=== PATIENT | female | born 1985 | race Caucasian/White ===

== ENCOUNTER 2016-12-18 10:36 | Inpatient (IN) | payer BC ==
[2016-12-18] MEDS ORDERED: Methylergonovine 0.2 MG/1 ML Amp IM PRN (11:32)
[2016-12-18] MEDS ORDERED: Sodium Chloride 0.9% 10 ML Syringe FLUSH PRN (11:32)
[2016-12-18] MEDS ORDERED: Sodium Chloride 0.9% 2.5 ML Syringe FLUSH PRN (11:32)
[2016-12-18] MEDS ORDERED: Water For Irrigation,Sterile 1,000 ML Container IRR PRN (11:32)
[2016-12-18] MEDS ORDERED: Lidocaine 1% 50 ML MDV INJECT PRN (11:32)
[2016-12-18] MEDS ORDERED: Butorphanol 1 MG/ML SDV IVPUSH PRN (11:32)
[2016-12-18] MEDS ORDERED: Carboprost Tromethamine 250 MCG/1 ML Amp IM PRN (11:32)
[2016-12-18] MEDS ORDERED: Misoprostol 200 MCG Tab PO PRN (11:32)
[2016-12-18] MEDS ORDERED: Nalbuphine 10 MG/1 ML Vial IVPUSH PRN (11:32)
[2016-12-18] MEDS ORDERED: Oxytocin/Lactated Ringers 30 UNIT/500 ML BAG IV SCH (11:45)
[2016-12-18] MEDS: Lactated Ringers 1,000 ML IV SCH ×2 (11:45→14:06)
--- NOTE | 2016-12-18 12:28 | PCM.PREANE ---
Preanesthetic Assessment - Anesthesia/Transfusion/Family Hx Anesthesia History: Prior Anesthesia Without Reaction Other Type of Anesthesia Reaction Comment: grandfather has low platelets - Review of Systems General: No Symptoms Pulmonary: No Symptoms Cardiovascular: No Symptoms Gastrointestinal: No symptoms Neurological: No Symptoms Other: Reports: None - Physical Assessment Height: 5 ft 6.14 in Weight: 79.832 kg ASA Class: 2 Mental Status: Alert & Oriented x3 Airway Class: Mallampati = 2 Dentition: Reports: Normal Dentition Thyro-Mental Finger Breadths: 3 Mouth Opening Finger Breadths: 3 ROM/Head Extension: Full Lungs: Clear to auscultation, Normal respiratory effort Cardiovascular: Regular Rate, Regular Rhythm - Lab Values: Laboratory Last Values WBC 16.17 K/uL (4.0-11.0) H 12/18/16 11:46 RBC 4.31 M/uL (4.30-5.90) 12/18/16 11:46 Hgb 12.3 g/dL (12.0-16.0) 12/18/16 11:46 Hct 37.1 % (36.0-46.0) 12/18/16 11:46 MCV 86.1 fL (80.0-98.0) 12/18/16 11:46 MCH 28.5 pg (27.0-32.0) 12/18/16 11:46 MCHC 33.2 g/dL (31.0-37.0) 12/18/16 11:46 RDW Std Deviation 45.4 fl (28.0-62.0) 12/18/16 11:46 RDW Coeff of Debra 15 % (11.0-15.0) 12/18/16 11:46 Plt Count 257 K/uL (150-400) 12/18/16 11:46 MPV 11.90 fL (7.40-12.00) 12/18/16 11:46 Nucleated RBC % 0.0 /100WBC 12/18/16 11:46 Nucleated RBCs # 0 K/uL 12/18/16 11:46 - Allergies Allergies/Adverse Reactions: Allergies Allergy/AdvReac Type Severity Reaction Status Date / Time No Known Allergies Allergy Verified 08/12/15 14:57 - Acknowledgements Anesthesia Type Planned: Epidural Pt an Appropriate Candidate for the Planned Anesthesia: Yes Alternatives and Risks of Anesthesia Discussed w Pt/Guardian: Yes Pt/Guardian Understands and Agrees with Anesthesia Plan: Yes PreAnesthesia Questionnaire - Past Health History Medical/Surgical History: Denies Medical/Surgical History HEENT History: Reports: None Cardiovascular History: Reports: None Gastrointestinal History: Reports: None Genitourinary History: Reports: None REIN[employer]CEMENT [employer]KER History: Reports: : 2 Para: 1 LMP (Approximate): Musculoskeletal History: Reports: None Neurological History: Reports: None Psychiatric History: Reports: None Endocrine/Metabolic History: Reports: None Hematologic History: Reports: None Immunologic History: Reports: None Oncologic (Cancer) History: Reports: None Dermatologic History: Reports: None - Infectious Disease History Infectious Disease History: Reports: None - SUBSTANCE USE Smoking Status *Q: Never Smoker Tobacco Use Within Last Twelve Months: Cigarettes Second Hand Smoke Exposure: No Recreational Drug Use History: No - CURRENT (IN HOUSE) MEDS Current Meds: Current Medications Butorphanol Tartrate (Stadol) 1 mg IVPUSH Q1H PRN PRN Reason: Pain Last Admin: 12/18/16 11:52 Dose: 1 mg Carboprost Tromethamine (Hemabate Ds) 250 mcg IM ASDIRECTED PRN PRN Reason: Post Hemorrhage Lactated Ringer's (Ringers, Lactated) 1,000 mls @ 150 mls/hr IV ASDIRECTED DEANDRA Oxytocin/Lactated Ringer's (Pitocin In Lr 30 Units/500 Ml) 30 unit in 500 mls @ 500 mls/hr IV TITRATE DEANDRA PRN Reason: 500 MUNITS/MIN Stop: 12/18/16 12:44 Lidocaine HCl (Xylocaine 1%) 50 ml INJECT .ONCE PRN PRN Reason: Laceration repair Methylergonovine Maleate (Methergine) 0.2 mg IM ASDIRECTED PRN PRN Reason: Post Hemorrhage Misoprostol (Cytotec) 200 mcg PO .ONCE PRN PRN Reason: Post Hemorrhage Nalbuphine HCl (Nubain) 10 mg IVPUSH Q1H PRN PRN Reason: Pain (severe 7-10) Stop: 12/18/16 13:33 Sodium Chloride (Saline Flush) 10 ml FLUSH ASDIRECTED PRN PRN Reason: Keep Vein Open Sodium Chloride (Saline Flush) 2.5 ml FLUSH ASDIRECTED PRN PRN Reason: Keep Vein Open Sterile Water (Sterile Water For Irrigation) 1,000 ml IRR ASDIRECTED PRN PRN Reason: delivery
[2016-12-18] MEDS ORDERED: fentaNYL 100 MCG/2 ML SDV ONE (12:41)
[2016-12-18] MEDS ORDERED: Ropivacaine HCl/PF 100 ML ONE (12:41)
[2016-12-18] MEDS ORDERED: Bupivacaine 0.5% 10 ML SDV ONE (13:05)
[2016-12-18] MEDS ORDERED: Bisacodyl 10 MG Supp RECTAL PRN (14:12)
[2016-12-18] MEDS ORDERED: Witch Hazel Medicated Pads 40/Jar TOP PRN (14:12)
[2016-12-18] MEDS ORDERED: oxyCODONE 5 MG Tab PO PRN (14:12)
[2016-12-18] MEDS ORDERED: Lanolin 100% Cream 7 GM Tube TOP PRN (14:12)
[2016-12-18] MEDS ORDERED: Benzocaine/Menthol 20%-0.5% Spray 78 GM Cannister TOP PRN (14:12)
[2016-12-18] MEDS ORDERED: Acetaminophen 500 MG Tab PO PRN (14:12)
[2016-12-18] MEDS: Ibuprofen 800 MG Tab PO PRN (16:32)
[2016-12-18] MEDS: Docusate Sodium 100 MG Cap PO PRN (21:38)
--- NOTE | 2016-12-19 00:09 | OR ---
SURGEON: Summer Connolly DATE OF PROCEDURE: 12/18/2016 PREDELIVERY HISTORY: This is a 31-year-old, G2, P1, presented to Labor and Delivery with painful uterine contractions at 39+ weeks. The patient was examined and found to be 4 to 5 cm dilated. The patient was admitted. IV fluids were given. The patient eventually did receive her epidural. During epidural, the patient underwent spontaneous rupture of membranes for clear fluid. The patient eventually progressed to complete cervical dilation and started maternal expulsive efforts. Of note, heart tracing was significant for category 1 status and the patient was juventino every 2 minutes. PREOPERATIVE DIAGNOSES: 1. Intrauterine at 39 weeks and 3 days. 2. Group B Streptococcus negative. 3. Active labor. POSTOPERATIVE DIAGNOSES: 1. Intrauterine at 39 weeks and 3 days. 2. Group B Streptococcus negative. 3. Active labor. 4. Deliver status. 5. Small first-degree vaginal laceration. PROCEDURE PERFORMED: 1. Spontaneous-assisted vaginal delivery. 2. Repair of first-degree vaginal laceration. ANESTHESIA TYPE: Epidural. ESTIMATED BLOOD LOSS: 75 mL. FINDINGS: Viable female in vertex presentation with score of 8 and 9 at 1 and 5 minutes respectively and weight of 3860 g. Normal intact placenta with a 3- vessel cord. Small first-degree vaginal laceration. DISPOSITION: Mother and tolerated the procedure well. COMPLICATIONS: None known. DESCRIPTION OF PROCEDURE: This female under epidural anesthesia delivered a viable female with score of 8 and 9 at 1 and 5 minutes respectively and weight of 3860 g. Delivery was via spontaneous-assisted vaginal delivery with infant in vertex presentation. Upon delivery of the vertex, neck was checked. There was a nuchal to be reduced and with gentle downward traction, the anterior shoulder was delivered followed by the body. The was bulb suctioned at delivery and had a vigorous cry. The was placed directly on mom's abdomen at mom's request. Cord was doubly clamped and cut. Cord blood was collected and sent for analysis. After delivery of the infant, IV Pitocin was given as uterotonic to prevent excessive maternal blood loss and help expel the placenta. With signs of placental separation, fundal massage was given along with traction on the umbilical cord for the active management of the third state of labor. A normal intact placenta with 3-vessel cord was delivered. After delivery of infant and placenta, the vagina, perineum, and rectum were explored and the patient had 2 small first-degree vaginal lacerations that were not hemostatic that were repaired with one of each [id number] with 3-0 Vicryl suture. Afterwards, hemostasis was excellent. Afterwards, the lower uterine segment and vagina were cleared of all clots and debris. The patient was cleansed, pads were changed, and the bed was returned to functioning status. The patient and tolerated the procedure well. Sponge, lap, needle, and instrument counts were correct. JOSEPH / TEQUILA /[id number] NICKY
--- NOTE | 2016-12-19 06:57 | PCM48HPAN ---
Post Anesthesia Note - EVALUATION WITHIN 48HRS OF ANESTHETIC Vital Signs in Normal Range: Yes Patient Participated in Evaluation: Yes Respiratory Function Stable: Yes Airway Patent: Yes Cardiovascular Function Stable: Yes Hydration Status Stable: Yes Pain Control Satisfactory: Yes Nausea and Vomiting Control Satisfactory: Yes Mental Status Recovered: Yes
--- NOTE | 2016-12-19 08:13 | PCM.PNPP ---
- General Info Date of Service: 12/19/16 Functional Status: Reports: pain controlled, tolerating diet, ambulating, urinating - Review of Systems General: Reports: No Symptoms HEENT: Reports: no symptoms Pulmonary: Reports: no symptoms Cardiovascular: Reports: No Symptoms Gastrointestinal: Reports: No symptoms Genitourinary: Reports: no symptoms Musculoskeletal: Reports: no symptoms Skin: Reports: no symptoms Neurological: Reports: No Symptoms Psychiatric: Reports: no symptoms - General Info Date of Service: 12/19/16 - Patient Data Vital Signs - most recent: Last Vital Signs Temp 36.5 C 12/19/16 04:00 Pulse 65 12/19/16 04:00 Resp 16 12/19/16 04:00 BP 102/58 L 12/19/16 04:00 Pulse Ox 97 12/19/16 04:00 Weight - most recent: 79.832 kg Lab Results - last 24 hrs: Laboratory Results - last 24 hr 12/18/16 12/18/16 12/19/16 Range/Units 11:46 11:46 05:29 WBC 16.17 H (4.0-11.0) K/uL RBC 4.31 (4.30-5.90) M/uL Hgb 12.3 11.1 L (12.0-16.0) g/dL Hct 37.1 34.0 L (36.0-46.0) % MCV 86.1 (80.0-98.0) fL MCH 28.5 (27.0-32.0) pg MCHC 33.2 (31.0-37.0) g/dL RDW Std Deviation 45.4 (28.0-62.0) fl RDW Coeff of Debra 15 (11.0-15.0) % Plt Count 257 (150-400) K/uL MPV 11.90 (7.40-12.00) fL Nucleated RBC % 0.0 /100WBC Nucleated RBCs # 0 K/uL Blood Type A POSITIVE Antibody Screen NEGATIVE Med Orders - Current: Current Medications Acetaminophen (Tylenol Extra Strength) 1,000 mg PO Q4H PRN PRN Reason: Pain Last Admin: 12/18/16 21:38 Dose: 1,000 mg Benzocaine/Menthol (Dermoplast Pain Relief 20%-0.5% [place]) 78 gm TOP ASDIRECTED PRN PRN Reason: Perineal Comfort Measure Last Admin: 12/18/16 18:13 Dose: 1 spray Bisacodyl (Dulcolax) 10 mg RECTAL .ONCE PRN PRN Reason: Constipation Butorphanol Tartrate (Stadol) 1 mg IVPUSH Q1H PRN PRN Reason: Pain Last Admin: 12/18/16 11:52 Dose: 1 mg Carboprost Tromethamine (Hemabate Ds) 250 mcg IM ASDIRECTED PRN PRN Reason: Post Hemorrhage Docusate Sodium (Colace) 100 mg PO BID PRN PRN Reason: Constipation Last Admin: 12/18/16 21:38 Dose: 100 mg Emollient Ointment (Lansinoh Hpa) 0 gm TOP ASDIRECTED PRN PRN Reason: Sore Nipples Lactated Ringer's (Ringers, Lactated) 1,000 mls @ 150 mls/hr IV ASDIRECTED DEANDRA Last Admin: 12/18/16 14:06 Dose: 150 mls/hr Ibuprofen (Motrin) 800 mg PO Q6H PRN PRN Reason: Pain Last Admin: 12/18/16 16:32 Dose: 800 mg Lidocaine HCl (Xylocaine 1%) 50 ml INJECT .ONCE PRN PRN Reason: Laceration repair Methylergonovine Maleate (Methergine) 0.2 mg IM ASDIRECTED PRN PRN Reason: Post Hemorrhage Misoprostol (Cytotec) 200 mcg PO .ONCE PRN PRN Reason: Post Hemorrhage Oxycodone HCl (Oxycodone) 5 mg PO Q2H PRN PRN Reason: Pain Sodium Chloride (Saline Flush) 10 ml FLUSH ASDIRECTED PRN PRN Reason: Keep Vein Open Sodium Chloride (Saline Flush) 2.5 ml FLUSH ASDIRECTED PRN PRN Reason: Keep Vein Open Sterile Water (Sterile Water For Irrigation) 1,000 ml IRR ASDIRECTED PRN PRN Reason: delivery Last Admin: 12/18/16 13:30 Dose: 1,000 ml Witch Jamee (Tucks) 1 pad TOP ASDIRECTED PRN PRN Reason: comfort care Last Admin: 12/18/16 18:13 Dose: 1 applic Discontinued Medications Bupivacaine HCl (Sensorcaine-Mpf 0.5%) Confirm Administered Dose 10 ml .ROUTE .STK-MED ONE Stop: 12/18/16 13:06 Fentanyl (Sublimaze) Confirm Administered Dose 100 mcg .ROUTE .STK-MED ONE Stop: 12/18/16 12:42 Oxytocin/Lactated Ringer's (Pitocin In Lr 30 Units/500 Ml) 30 unit in 500 mls @ 500 mls/hr IV TITRATE DEANDRA PRN Reason: 500 MUNITS/MIN Stop: 12/18/16 12:44 Last Admin: 12/18/16 13:49 Dose: 500 munits/min, 500 mls/hr Ropivacaine (Naropin 0.2%) Confirm Administered Dose 100 mls @ as directed .ROUTE .STK-MED ONE Stop: 12/18/16 12:42 Nalbuphine HCl (Nubain) 10 mg IVPUSH Q1H PRN PRN Reason: Pain (severe 7-10) Stop: 12/18/16 13:33 - Interaction Disposition, : [place] in Room with Family Infant Interaction: Holding Feeding: Breastfed ; Nursed Well Support Person: - Recovery Exam Fundal Tone: Firm Fundal Level: 1 Fingerbreadths Below Umbilicus Fundal Placement: Midline Lochia Amount: Scant Lochia Color: Rubra/Red Perineum Description: Intact, Minimal Bruising/Swelling Episiotomy/Laceration: Approximated Bladder Status: Voiding Urinary Elimination: Voided - Exam General: alert, oriented Neck: supple Lungs: Clear to auscultation, Normal respiratory effort Cardiovascular: Regular Rate, Regular Rhythm Extremities: no calf tenderness Skin: warm, dry, intact Neurological: no new focal deficit Psy/Mental Status: alert, normal affect, normal mood - Problem List & Annotations (1) Vaginal delivery SNOMED Code(s): 852699267 Code(s): O80 - ENCOUNTER FOR FULL-TERM UNCOMPLICATED DELIVERY Status: Acute Current Visit: Yes - Problem List Review Problem List Initiated/Reviewed/Updated: Yes - My Orders Last 24 Hours: My Active Orders 12/18/16 11:32 Notify Provider [RC] PRN Butorphanol [Stadol] 1 mg IVPUSH Q1H PRN Carboprost Tromethamine [Hemabate DS] 250 mcg IM ASDIRECTED PRN Lidocaine 1% [Xylocaine 1%] 50 ml INJECT .ONCE PRN Methylergonovine [Methergine] 0.2 mg IM ASDIRECTED PRN Misoprostol [Cytotec] 200 mcg PO .ONCE PRN Sodium Chloride 0.9% [Saline Flush] 10 ml FLUSH ASDIRECTED PRN Sodium Chloride 0.9% [Saline Flush] 2.5 ml FLUSH ASDIRECTED PRN Water For Irrigation,Sterile [Sterile Water for Irrigation] 1,000 ml IRR ASDIRECTED PRN Scalp Electrode [WOMSER] Per Unit Routine Peripheral IV Insertion Adult [OM.PC] Routine Resuscitation Status Routine 12/18/16 11:45 Lactated Ringers [Ringers, Lactated] 1,000 ml IV ASDIRECTED 12/18/16 14:12 Patient Status [ADT] Routine May Shower [RC] ASDIRECTED Up ad Patsy [RC] ASDIRECTED Vital Signs [RC] PER UNIT ROUTINE Acetaminophen [Tylenol Extra Strength] 1,000 mg PO Q4H PRN Benzocaine/Menthol [Dermoplast Pain Relief 20%-0.5% [place]] 78 gm TOP ASDIRECTED PRN Bisacodyl [Dulcolax] 10 mg RECTAL .ONCE PRN Docusate Sodium [Colace] 100 mg PO BID PRN Ibuprofen [Motrin] 800 mg PO Q6H PRN Lanolin [Lansinoh HPA] See Dose Instructions TOP ASDIRECTED PRN Witch Jamee [Tucks] 1 pad TOP ASDIRECTED PRN oxyCODONE 5 mg PO Q2H PRN Assess Lochia [WOMSER] Per Unit Routine Assess Uterine Involution [WOMSER] Per Unit Routine Breast Pump [WOMSER] Per Unit Routine Ice Therapy [OM.PC] Per Unit Routine Perineal Care [OM.PC] Per Unit Routine Peripheral IV Discontinue [OM.PC] Routine Sitz Bath [OM.PC] Per Unit Routine 12/18/16 Dinner Regular Diet [DIET] - Assessment Assessment:: PPD#1 S/p SAVD Doing well Desires discharge home today - Plan Plan:: Discharge home today with follow up in 6wks Pelvic rest for 6wks Bleeding precautions given Infection precautions given Thrombotic precautions given
[2016-12-19] MEDS: Ibuprofen 800 MG Tab PO PRN (08:32)
[2016-12-19] MEDS: Docusate Sodium 100 MG Cap PO PRN (08:32)
[2016-12-19 10:50] VITALS: BP 112/68
== END 2016-12-19 16:20 | disposition home or self-care (01) | DRG 560 ==
LOC: MW.OBCHECK 10:36 → MW.OB 10:38 → MW.OBCHECK 11:32 → MW.OB 11:32 → OBSVTOIN 13:47 → MW.OB 12-19 07:52
PROVIDERS: ADMIT Obstetrics & Gynecology; ATTEND Obstetrics & Gynecology
PROC: 10E0XZZ Delivery of Products of Conception, External Approach (ICD-10-PCS; principal; 2016-12-18)
PROC: 0HQ9XZZ Repair Perineum Skin, External Approach (ICD-10-PCS; 2016-12-18)
DX: O70.0 First degree perineal laceration during delivery (principal); O69.1XX0 Labor and delivery complicated by cord around neck, with compression, not applicable or unspecified; Z3A.39 39 weeks gestation of pregnancy; Z37.0 Single live birth
CPT/HCPCS: 01967; 36415; 59025; 85014; 85018; 85027; 86850; 86900; 86901; A9270-GY; J0595; J2795; J3010; J7120

== ENCOUNTER 2019-03-16 00:22 | Inpatient (IN) | payer BC ==
[2019-03-16] MEDS ORDERED: Sodium Chloride 0.9% 10 ML Syringe FLUSH PRN (00:49)
[2019-03-16] MEDS ORDERED: Sodium Chloride 0.9% 2.5 ML Syringe FLUSH PRN (00:49)
[2019-03-16] MEDS ORDERED: Lidocaine 1% 50 ML MDV INJECT PRN (00:49)
[2019-03-16] MEDS ORDERED: Misoprostol 200 MCG Tab PO PRN (00:49)
[2019-03-16] MEDS ORDERED: Tranexamic Acid 1,000 MG in Sodium Chloride 0.9% 100 ML IV PRN (00:49)
[2019-03-16] MEDS ORDERED: Carboprost Tromethamine 250 MCG/1 ML Amp IM PRN (00:49)
[2019-03-16] MEDS ORDERED: Sodium Chloride 0.9% 10 ML SDV IV PRN (00:49)
[2019-03-16] MEDS ORDERED: Water For Irrigation,Sterile 1,000 ML Container IRR PRN (00:49)
[2019-03-16] MEDS ORDERED: Butorphanol 1 MG/ML SDV IVPUSH PRN (00:49)
[2019-03-16] MEDS ORDERED: Methylergonovine 0.2 MG/1 ML Amp IM PRN ×2 (00:49→01:59)
[2019-03-16] MEDS ORDERED: Nalbuphine 10 MG/1 ML Vial IVPUSH PRN (00:49)
[2019-03-16] MEDS ORDERED: Ampicillin 2 GM in Sodium Chloride 0.9% 100 ML IV ONE (00:52)
[2019-03-16] MEDS ORDERED: Oxytocin/0.9 % Sodium Chloride 30 UNIT/500 ML BAG IV SCH (01:00)
[2019-03-16] MEDS ORDERED: Lactated Ringers 1,000 ML IV SCH (01:00)
[2019-03-16] MEDS ORDERED: Ibuprofen 400 MG Tab PO PRN (01:59)
[2019-03-16] MEDS ORDERED: Witch Hazel Medicated Pads 40/Jar TOP PRN (01:59)
[2019-03-16] MEDS ORDERED: Docusate Sodium 100 MG Cap PO PRN (01:59)
[2019-03-16] MEDS ORDERED: oxyCODONE 5 MG Tab PO PRN (01:59)
[2019-03-16] MEDS ORDERED: Acetaminophen 500 MG Tab PO PRN ×2 (01:59)
[2019-03-16] MEDS ORDERED: Lanolin 100% Cream 7 GM Tube TOP PRN (01:59)
[2019-03-16] MEDS ORDERED: Benzocaine/Menthol 20%-0.5% Spray 78 GM Cannister TOP PRN (01:59)
[2019-03-16] MEDS ORDERED: Bisacodyl 10 MG Supp RECTAL PRN (01:59)
--- NOTE | 2019-03-16 02:05 | PCM.DEL ---
L & D Note - General Info Date of Service: 03/16/19 Mother's Due Date: 03/19/19 - Delivery Note Labor: Spontaneous Delivery Outcome: Livebirth Infant Delivery Method: Spontaneous Vaginal Delivery-Single (precipitous delivery (3-4 cm at 12:44 am, called for delivery at 1:28, delivery at 1:32)) Nuchal Cord: None Prep: Other Anesthesia Type: None Episiotomy Type: None Laceration: None Placenta: Intact, Spontaneous Cord: 3 Vessels Resuscitation Needed: No [place]: Suctioned Score 1 min: 8 Score 5 min: 9 - General Info Date of Service: 03/16/19 - Patient Data Weight - Most Recent: 82.1 kg Lab Results Last 24 Hours: Laboratory Results - last 24 hr 03/16/19 03/16/19 Range/Units 01:10 01:10 WBC 12.98 H (4.0-11.0) K/uL RBC 4.38 (4.30-5.90) M/uL Hgb 11.8 L (12.0-16.0) g/dL Hct 35.8 L (36.0-46.0) % MCV 81.7 (80.0-98.0) fL MCH 26.9 L (27.0-32.0) pg MCHC 33.0 (31.0-37.0) g/dL RDW Std Deviation 51.2 (28.0-62.0) fl RDW Coeff of Debra 18 H (11.0-15.0) % Plt Count 253 (150-400) K/uL MPV 11.40 (7.40-12.00) fL Blood Type A POSITIVE Antibody Screen NEGATIVE Med Orders - Current: Current Medications Acetaminophen (Tylenol Extra Strength) 500 mg PO Q4H PRN PRN Reason: Pain Acetaminophen (Tylenol Extra Strength) 1,000 mg PO Q4H PRN PRN Reason: Pain Benzocaine/Menthol (Dermoplast Pain Relief 20%-0.5% [place]) 78 gm TOP ASDIRECTED PRN PRN Reason: Perineal Comfort Measure Bisacodyl (Dulcolax) 10 mg RECTAL ONETIME PRN PRN Reason: Constipation Docusate Sodium (Colace) 100 mg PO BID PRN PRN Reason: Constipation Emollient Ointment (Lansinoh Hpa) 0 gm TOP ASDIRECTED PRN PRN Reason: Sore Nipples Ibuprofen (Motrin) 400 mg PO Q4H PRN PRN Reason: Pain Ibuprofen (Motrin) 800 mg PO Q6H PRN PRN Reason: Pain Methylergonovine Maleate (Methergine) 0.2 mg IM ONETIME PRN PRN Reason: Excessive Vaginal Bleeding Oxycodone HCl (Oxycodone) 5 mg PO Q2H PRN PRN Reason: Pain Witch Jamee (Tucks) 1 pad TOP ASDIRECTED PRN PRN Reason: comfort care Discontinued Medications Butorphanol Tartrate (Stadol) 1 mg IVPUSH Q1H PRN PRN Reason: Pain Carboprost Tromethamine (Hemabate Ds) 250 mcg IM ASDIRECTED PRN PRN Reason: Post Hemorrhage Lactated Ringer's (Ringers, Lactated) 1,000 mls @ 150 mls/hr IV ASDIRECTED [facility] Last Admin: 03/16/19 01:12 Dose: 150 mls/hr Oxytocin/Sodium Chloride (Oxytocin 30 Unit/500 Ml-Ns) 30 unit in 500 mls @ 500 mls/hr IV TITRATE [facility] Tranexamic Acid 1,000 mg/ (Sodium Chloride) 110 mls @ 660 mls/hr IV ONETIME PRN PRN Reason: Bleeding Ampicillin Sodium 2 gm/ Sodium (Chloride) 100 mls @ 200 mls/hr IV ONETIME ONE Stop: 03/16/19 01:21 Last Admin: 03/16/19 01:13 Dose: 200 mls/hr Lidocaine HCl (Xylocaine 1%) 50 ml INJECT ONETIME PRN PRN Reason: Laceration repair Methylergonovine Maleate (Methergine) 0.2 mg IM ASDIRECTED PRN PRN Reason: Post Hemorrhage Misoprostol (Cytotec) 200 mcg PO ONETIME PRN PRN Reason: Post Hemorrhage Nalbuphine HCl (Nubain) 10 mg IVPUSH Q1H PRN PRN Reason: Pain (severe 7-10) Sodium Chloride (Saline Flush) 10 ml FLUSH ASDIRECTED PRN PRN Reason: Keep Vein Open Sodium Chloride (Saline Flush) 2.5 ml FLUSH ASDIRECTED PRN PRN Reason: Keep Vein Open Sodium Chloride (Normal Saline) 10 ml IV ASDIRECTED PRN PRN Reason: IV Use Sterile Water (Sterile Water For Irrigation) 1,000 ml IRR ASDIRECTED PRN PRN Reason: delivery - Problem List & Annotations (1) Vaginal delivery SNOMED Code(s): 088160264 Code(s): O80 - ENCOUNTER FOR FULL-TERM UNCOMPLICATED DELIVERY Status: Acute Current Visit: No - Problem List Review Problem List Initiated/Reviewed/Updated: Yes - My Orders Last 24 Hours: My Active Orders 03/16/19 00:49 Heart Tones [RC] CONTINUOUS Non Stress Test [RC] PER UNIT ROUTINE May Shower [RC] ASDIRECTED Notify Provider [RC] PRN Up ad Patsy [RC] ASDIRECTED Vaginal Exam [RC] PRN Vital Signs [RC] PER UNIT ROUTINE 03/16/19 01:35 BLOOD GAS ARTERIAL UMBILICAL [BG] Timed BLOOD GAS VENOUS UMBILICAL [BG] Timed 03/16/19 01:59 Patient Status [ADT] Routine May Shower [RC] ASDIRECTED Up ad Patsy [RC] ASDIRECTED Vital Signs [RC] PER UNIT ROUTINE Acetaminophen [Tylenol Extra Strength] 1,000 mg PO Q4H PRN Acetaminophen [Tylenol Extra Strength] 500 mg PO Q4H PRN Benzocaine/Menthol [Dermoplast Pain Relief 20%-0.5% [place]] 78 gm TOP ASDIRECTED PRN Bisacodyl [Dulcolax] 10 mg RECTAL ONETIME PRN Docusate Sodium [Colace] 100 mg PO BID PRN Ibuprofen [Motrin] 400 mg PO Q4H PRN Ibuprofen [Motrin] 800 mg PO Q6H PRN Lanolin [Lansinoh HPA] See Dose Instructions TOP ASDIRECTED PRN Methylergonovine [Methergine] 0.2 mg IM ONETIME PRN Witch Jamee [Tucks] 1 pad TOP ASDIRECTED PRN oxyCODONE 5 mg PO Q2H PRN Assess Lochia [WOMSER] Per Unit Routine Assess Uterine Involution [WOMSER] Per Unit Routine Perineal Care [OM.PC] Per Unit Routine Peripheral IV Discontinue [OM.PC] Routine Resuscitation Status Routine 03/16/19 Breakfast Regular Diet [DIET] 03/17/19 05:11 HEMOGLOBIN/HEMATOCRIT,HH [HEME] Timed
[2019-03-16] MEDS: Ibuprofen 800 MG Tab PO PRN ×2 (02:59→10:32)
--- NOTE | 2019-03-16 03:08 | OR ---
SURGEON: Mel Pacheco M.D. DATE OF PROCEDURE: 03/16/2019 PREOPERATIVE DIAGNOSES: A 39 and 3/7 weeks' intrauterine , active spontaneous labor, precipitous delivery. POSTOPERATIVE DIAGNOSES: A 39 and 3/7 weeks' intrauterine , active spontaneous labor, precipitous delivery. PROCEDURE: Term spontaneous vaginal delivery. PRIMARY SURGEON: Mel Pacheco M.D. ANESTHESIA: None. EBL: 300 mL. FINDINGS: Liveborn female, scores of 8 and 9, weighing 3970 g. Placenta spontaneous, Schultze intact with 3 vessels. Perineum intact. BRIEF HISTORY/DESCRIPTION OF PROCEDURE: This is a 33-year-old female, G3, P2-0-0-2. She presents at 39 and 3/7 weeks' gestation with regular painful contraction. She was admitted at 12:44 a.m. She at that point was 3 to 4 cm. I requested that she be admitted. Group B strep prophylaxis was initiated and to be called when platelets were available. I was called at 1:24 to be notified that labs were back and proceeded with coming into the hospital at 1:28. I was called as the delivery was imminent. Delivery occurred at 1:32. I was called for delivery at 1:28. When I arrived, the baby was on the mother's abdomen. The cord had been clamped, but was not cut. The cord was then cut. I collected cord blood for cord ABGs as well as routine cord blood sampling. Pitocin had been initiated. The placenta was delivered spontaneously. Schultze intact with 3 vessels. Upon inspection of the pelvis and perineum, there were no periurethral, vaginal sidewall, cervical, rectal, or perineal lacerations. EBL was less than 300 mL. There were no known complications. Mother and baby are in LDR in good condition. The dose of ampicillin was completed just at the time of delivery. She received only 1 dose of ampicillin, and Peds will be notified of this. GABRIEL MANDEL /[id number] MTDD
--- NOTE | 2019-03-16 10:16 | PCM.PNPP ---
- General Info Date of Service: 03/16/19 Functional Status: Reports: Tolerating Diet, Ambulating, Urinating. Denies: Pain Controlled (cramping with . ) - Review of Systems General: Reports: No Symptoms HEENT: Reports: No Symptoms Pulmonary: Reports: No Symptoms Cardiovascular: Reports: No Symptoms Gastrointestinal: Reports: No Symptoms Genitourinary: Reports: No Symptoms Musculoskeletal: Reports: No Symptoms Skin: Reports: No Symptoms Neurological: Reports: No Symptoms Psychiatric: Reports: No Symptoms - Patient Data Vital Signs - Most Recent: Last Vital Signs Temp 36.3 C 03/16/19 07:31 Pulse 63 03/16/19 07:31 Resp 16 03/16/19 07:31 BP 105/65 03/16/19 09:00 Pulse Ox Weight - Most Recent: 82.1 kg Lab Results - Last 24 Hours: Laboratory Results - last 24 hr 03/16/19 03/16/19 03/16/19 Range/Units 01:10 01:10 01:40 WBC 12.98 H (4.0-11.0) K/uL RBC 4.38 (4.30-5.90) M/uL Hgb 11.8 L (12.0-16.0) g/dL Hct 35.8 L (36.0-46.0) % MCV 81.7 (80.0-98.0) fL MCH 26.9 L (27.0-32.0) pg MCHC 33.0 (31.0-37.0) g/dL RDW Std Deviation 51.2 (28.0-62.0) fl RDW Coeff of Debra 18 H (11.0-15.0) % Plt Count 253 (150-400) K/uL MPV 11.40 (7.40-12.00) fL Cord ABG pH 7.235 (7.18-7.38) Cord ABG Base Excess -7 (-10--2) Cord VBG pH 7.295 (7.25-7.45) Cord VBG Base Excess -6 (-10--2) Blood Type A POSITIVE Antibody Screen NEGATIVE Med Orders - Current: Current Medications Acetaminophen (Tylenol Extra Strength) 500 mg PO Q4H PRN PRN Reason: Pain Acetaminophen (Tylenol Extra Strength) 1,000 mg PO Q4H PRN PRN Reason: Pain Benzocaine/Menthol (Dermoplast Pain Relief 20%-0.5% [employer]) 78 gm TOP ASDIRECTED PRN PRN Reason: Perineal Comfort Measure Bisacodyl (Dulcolax) 10 mg RECTAL ONETIME PRN PRN Reason: Constipation Docusate Sodium (Colace) 100 mg PO BID PRN PRN Reason: Constipation Emollient Ointment (Lansinoh Hpa) 0 gm TOP ASDIRECTED PRN PRN Reason: Sore Nipples Ibuprofen (Motrin) 400 mg PO Q4H PRN PRN Reason: Pain Ibuprofen (Motrin) 800 mg PO Q6H PRN PRN Reason: Pain Last Admin: 03/16/19 02:59 Dose: 800 mg Methylergonovine Maleate (Methergine) 0.2 mg IM ONETIME PRN PRN Reason: Excessive Vaginal Bleeding Oxycodone HCl (Oxycodone) 5 mg PO Q2H PRN PRN Reason: Pain Witch Jamee (Tucks) 1 pad TOP ASDIRECTED PRN PRN Reason: comfort care Discontinued Medications Butorphanol Tartrate (Stadol) 1 mg IVPUSH Q1H PRN PRN Reason: Pain Carboprost Tromethamine (Hemabate Ds) 250 mcg IM ASDIRECTED PRN PRN Reason: Post Hemorrhage Lactated Ringer's (Ringers, Lactated) 1,000 mls @ 150 mls/hr IV ASDIRECTED [facility] Last Admin: 03/16/19 01:12 Dose: 150 mls/hr Oxytocin/Sodium Chloride (Oxytocin 30 Unit/500 Ml-Ns) 30 unit in 500 mls @ 500 mls/hr IV TITRATE [facility] Last Admin: 03/16/19 01:33 Dose: 500 mls/hr Tranexamic Acid 1,000 mg/ (Sodium Chloride) 110 mls @ 660 mls/hr IV ONETIME PRN PRN Reason: Bleeding Ampicillin Sodium 2 gm/ Sodium (Chloride) 100 mls @ 200 mls/hr IV ONETIME ONE Stop: 03/16/19 01:21 Last Admin: 03/16/19 01:13 Dose: 200 mls/hr Lidocaine HCl (Xylocaine 1%) 50 ml INJECT ONETIME PRN PRN Reason: Laceration repair Methylergonovine Maleate (Methergine) 0.2 mg IM ASDIRECTED PRN PRN Reason: Post Hemorrhage Misoprostol (Cytotec) 200 mcg PO ONETIME PRN PRN Reason: Post Hemorrhage Nalbuphine HCl (Nubain) 10 mg IVPUSH Q1H PRN PRN Reason: Pain (severe 7-10) Sodium Chloride (Saline Flush) 10 ml FLUSH ASDIRECTED PRN PRN Reason: Keep Vein Open Sodium Chloride (Saline Flush) 2.5 ml FLUSH ASDIRECTED PRN PRN Reason: Keep Vein Open Sodium Chloride (Normal Saline) 10 ml IV ASDIRECTED PRN PRN Reason: IV Use Sterile Water (Sterile Water For Irrigation) 1,000 ml IRR ASDIRECTED PRN PRN Reason: delivery - Infant Interaction Infant Disposition, : [place] in Room with Family Interaction: Holding Infant Infant Feeding: Breastfed ; Nursed Well Support Person: - Recovery Exam Fundal Tone: Firm Fundal Level: At Umbilicus Fundal Placement: Midline Lochia Amount: Scant Lochia Color: Rubra/Red Perineum Description: Intact, Minimal Bruising/Swelling Episiotomy/Laceration: None Bladder Status: Voiding Urinary Elimination: Voided - Exam General: Alert, Oriented HEENT: Pupils Equal Neck: Supple Lungs: Clear to Auscultation, Normal Respiratory Effort Cardiovascular: Regular Rate, Regular Rhythm GI/Abdominal Exam: Normal Bowel Sounds, Soft, Non-Tender, No Organomegaly, No Distention, No Abnormal Bruit, No Mass, Pelvis Stable Extremities: Normal Inspection, Normal Range of Motion, Non-Tender, No Pedal Edema, Normal Capillary Refill Skin: Warm, Dry, Intact Wound/Incisions: Healing Well Neurological: No New Focal Deficit Psy/Mental Status: Alert, Normal Affect, Normal Mood - Problem List & Annotations (1) Vaginal delivery SNOMED Code(s): 089471609 Code(s): O80 - ENCOUNTER FOR FULL-TERM UNCOMPLICATED DELIVERY Status: Acute Current Visit: No - Problem List Review Problem List Initiated/Reviewed/Updated: Yes - My Orders Last 24 Hours: My Active Orders 03/16/19 00:49 Heart Tones [RC] CONTINUOUS Non Stress Test [RC] PER UNIT ROUTINE May Shower [RC] ASDIRECTED Notify Provider [RC] PRN Up ad Patsy [RC] ASDIRECTED Vaginal Exam [RC] PRN Vital Signs [RC] PER UNIT ROUTINE 03/16/19 01:59 Patient Status [ADT] Routine May Shower [RC] ASDIRECTED Up ad Patsy [RC] ASDIRECTED Vital Signs [RC] PER UNIT ROUTINE Acetaminophen [Tylenol Extra Strength] 1,000 mg PO Q4H PRN Acetaminophen [Tylenol Extra Strength] 500 mg PO Q4H PRN Benzocaine/Menthol [Dermoplast Pain Relief 20%-0.5% [employer]inger] 78 gm TOP ASDIRECTED PRN Bisacodyl [Dulcolax] 10 mg RECTAL ONETIME PRN Docusate Sodium [Colace] 100 mg PO BID PRN Ibuprofen [Motrin] 400 mg PO Q4H PRN Ibuprofen [Motrin] 800 mg PO Q6H PRN Lanolin [Lansinoh HPA] See Dose Instructions TOP ASDIRECTED PRN Methylergonovine [Methergine] 0.2 mg IM ONETIME PRN Witch Jamee [Tucks] 1 pad TOP ASDIRECTED PRN oxyCODONE 5 mg PO Q2H PRN Assess Lochia [WOMSER] Per Unit Routine Assess Uterine Involution [WOMSER] Per Unit Routine Perineal Care [OM.PC] Per Unit Routine Peripheral IV Discontinue [OM.PC] Routine Resuscitation Status Routine 03/16/19 10:14 HEMOGLOBIN/HEMATOCRIT,HH [HEME] Timed 03/16/19 Breakfast Regular Diet [DIET] - Assessment Assessment:: PPD#0 after , stable, minimal lochia, tolerating diet. continue care, check H&H today, may have IV out if stable. - Plan Plan:: Continue care, anticipate home tomorrow.
--- NOTE | 2019-03-17 08:40 | PCM.PNPP ---
- General Info Date of Service: 03/17/19 Admission Dx/Problem (Free Text): Patient without complaints. Minimal-moderate lochia. Pain controlled. Ambulating and voiding. Functional Status: Reports: Pain Controlled, Tolerating Diet, Ambulating, Urinating - Review of Systems General: Reports: No Symptoms HEENT: Reports: No Symptoms Pulmonary: Reports: No Symptoms Cardiovascular: Reports: No Symptoms Gastrointestinal: Reports: No Symptoms Genitourinary: Reports: No Symptoms Musculoskeletal: Reports: No Symptoms Skin: Reports: No Symptoms Neurological: Reports: No Symptoms Psychiatric: Reports: No Symptoms - Patient Data Vital Signs - Most Recent: Last Vital Signs Temp 36.4 C 03/17/19 04:45 Pulse 61 03/17/19 04:45 Resp 16 03/17/19 04:45 BP 110/71 03/17/19 04:45 Pulse Ox 97 03/16/19 16:07 Weight - Most Recent: 82.1 kg Lab Results - Last 24 Hours: Laboratory Results - last 24 hr 03/16/19 Range/Units 10:26 Hgb 11.0 L (12.0-16.0) g/dL Hct 34.7 L (36.0-46.0) % Med Orders - Current: Current Medications Acetaminophen (Tylenol Extra Strength) 500 mg PO Q4H PRN PRN Reason: Pain Acetaminophen (Tylenol Extra Strength) 1,000 mg PO Q4H PRN PRN Reason: Pain Benzocaine/Menthol (Dermoplast Pain Relief 20%-0.5% [employer]) 78 gm TOP ASDIRECTED PRN PRN Reason: Perineal Comfort Measure Last Admin: 03/16/19 10:33 Dose: 1 can Bisacodyl (Dulcolax) 10 mg RECTAL ONETIME PRN PRN Reason: Constipation Docusate Sodium (Colace) 100 mg PO BID PRN PRN Reason: Constipation Emollient Ointment (Lansinoh Hpa) 0 gm TOP ASDIRECTED PRN PRN Reason: Sore Nipples Ibuprofen (Motrin) 400 mg PO Q4H PRN PRN Reason: Pain Ibuprofen (Motrin) 800 mg PO Q6H PRN PRN Reason: Pain Last Admin: 03/16/19 10:32 Dose: 800 mg Methylergonovine Maleate (Methergine) 0.2 mg IM ONETIME PRN PRN Reason: Excessive Vaginal Bleeding Oxycodone HCl (Oxycodone) 5 mg PO Q2H PRN PRN Reason: Pain Witch Jamee (Tucks) 1 pad TOP ASDIRECTED PRN PRN Reason: comfort care Discontinued Medications Butorphanol Tartrate (Stadol) 1 mg IVPUSH Q1H PRN PRN Reason: Pain Carboprost Tromethamine (Hemabate Ds) 250 mcg IM ASDIRECTED PRN PRN Reason: Post Hemorrhage Lactated Ringer's (Ringers, Lactated) 1,000 mls @ 150 mls/hr IV ASDIRECTED [facility] Last Admin: 03/16/19 01:12 Dose: 150 mls/hr Oxytocin/Sodium Chloride (Oxytocin 30 Unit/500 Ml-Ns) 30 unit in 500 mls @ 500 mls/hr IV TITRATE [facility] Last Admin: 03/16/19 01:33 Dose: 500 mls/hr Tranexamic Acid 1,000 mg/ (Sodium Chloride) 110 mls @ 660 mls/hr IV ONETIME PRN PRN Reason: Bleeding Ampicillin Sodium 2 gm/ Sodium (Chloride) 100 mls @ 200 mls/hr IV ONETIME ONE Stop: 03/16/19 01:21 Last Admin: 03/16/19 01:13 Dose: 200 mls/hr Lidocaine HCl (Xylocaine 1%) 50 ml INJECT ONETIME PRN PRN Reason: Laceration repair Methylergonovine Maleate (Methergine) 0.2 mg IM ASDIRECTED PRN PRN Reason: Post Hemorrhage Misoprostol (Cytotec) 200 mcg PO ONETIME PRN PRN Reason: Post Hemorrhage Nalbuphine HCl (Nubain) 10 mg IVPUSH Q1H PRN PRN Reason: Pain (severe 7-10) Sodium Chloride (Saline Flush) 10 ml FLUSH ASDIRECTED PRN PRN Reason: Keep Vein Open Sodium Chloride (Saline Flush) 2.5 ml FLUSH ASDIRECTED PRN PRN Reason: Keep Vein Open Sodium Chloride (Normal Saline) 10 ml IV ASDIRECTED PRN PRN Reason: IV Use Sterile Water (Sterile Water For Irrigation) 1,000 ml IRR ASDIRECTED PRN PRN Reason: delivery - Infant Interaction Disposition, : [place] in Room with Family Infant Interaction: Holding Feeding: Breastfed Infant; Nursed Well Support Person: - Recovery Exam Fundal Tone: Firm Fundal Level: 1 Fingerbreadths Below Umbilicus Fundal Placement: Midline Lochia Amount: Small Lochia Color: Rubra/Red Perineum Description: Intact, Minimal Bruising/Swelling Episiotomy/Laceration: None Bladder Status: Voiding Urinary Elimination: Voided - Exam General: Alert, Oriented, Cooperative Neck: Supple Lungs: Clear to Auscultation, Normal Respiratory Effort Cardiovascular: Regular Rate, Regular Rhythm GI/Abdominal Exam: Soft, Non-Tender Extremities: Normal Inspection Skin: Warm, Dry, Intact Neurological: No New Focal Deficit Psy/Mental Status: Alert, Normal Affect, Normal Mood - Problem List & Annotations (1) Vaginal delivery SNOMED Code(s): 115033724 Code(s): O80 - ENCOUNTER FOR FULL-TERM UNCOMPLICATED DELIVERY Status: Acute Current Visit: No - Problem List Review Problem List Initiated/Reviewed/Updated: Yes - Assessment Assessment:: PPD#1 after , stable, minimal lochia, tolerating diet. - Plan Plan:: Desires discharge home today if baby cleared by lock stitch channeler. Reviewed discharge instructions.
[2019-03-17 09:39] VITALS: BP 104/63; PULSE 62
== END 2019-03-17 14:17 | disposition home or self-care (01) | DRG 560 ==
LOC: MW.OBCHECK 00:22 → MW.OB 00:24 → MW.OBCHECK 01:30 → MW.OB 01:30 → OBSVTOIN 01:32 → MW.OB 05:00
PROVIDERS: ADMIT Obstetrics & Gynecology; ATTEND Obstetrics & Gynecology
PROC: 10E0XZZ Delivery of Products of Conception, External Approach (ICD-10-PCS; principal; 2019-03-16)
DX: O62.3 Precipitate labor (principal); O99.824 Streptococcus B carrier state complicating childbirth; Z3A.39 39 weeks gestation of pregnancy; Z37.0 Single live birth
CPT/HCPCS: 36415; 59025; 59409; 82803; 85014; 85018; 85027; 86850; 86900; 86901; A9270-GY; J0290; J2590; J7030; J7120

== ENCOUNTER 2021-09-06 16:26 | Inpatient (IN) | payer BC ==
[2021-09-06] MEDS ORDERED: Sodium Chloride 0.9% 20 ML SDV IV PRN (17:13)
[2021-09-06] MEDS ORDERED: Tranexamic Acid 1,000 MG in Sodium Chloride 0.9% 100 ML IV PRN (17:13)
[2021-09-06] MEDS ORDERED: Butorphanol 1 MG/ML SDV IVPUSH PRN (17:13)
[2021-09-06] MEDS ORDERED: Methylergonovine 0.2 MG/1 ML Amp IM PRN (17:13)
[2021-09-06] MEDS ORDERED: Carboprost Tromethamine 250 MCG/1 ML Amp IM PRN (17:13)
[2021-09-06] MEDS ORDERED: Sodium Chloride 0.9% 2.5 ML Syringe FLUSH PRN (17:13)
[2021-09-06] MEDS ORDERED: Lidocaine 1% 50 ML MDV INJECT PRN (17:13)
[2021-09-06] MEDS ORDERED: Ondansetron 4 MG/2 ML SDV IVPUSH PRN (17:13)
[2021-09-06] MEDS ORDERED: Sodium Chloride 0.9% 10 ML Syringe FLUSH PRN (17:13)
[2021-09-06] MEDS ORDERED: Water For Irrigation,Sterile 1,000 ML Container IRR PRN (17:13)
[2021-09-06] MEDS ORDERED: Terbutaline 1 MG/ML SDV SUBCUT PRN (17:13)
[2021-09-06] MEDS ORDERED: Misoprostol 200 MCG Tab PO PRN (17:13)
[2021-09-06] MEDS ORDERED: Oxytocin/0.9 % Sodium Chloride 30 UNIT/500 ML BAG IV SCH ×2 (17:15)
[2021-09-06] MEDS ORDERED: Lactated Ringers 1,000 ML IV SCH (17:15)
[2021-09-06] MEDS ORDERED: Ampicillin 2 GM in Sodium Chloride 0.9% 100 ML IV ONE (17:36)
[2021-09-06] MEDS ORDERED: Ropivacaine 100 ML ONE (18:03)
[2021-09-06] MEDS ORDERED: fentaNYL 100 MCG/2 ML SDV ONE (18:03)
[2021-09-06] MEDS ORDERED: Acetaminophen 500 MG Tab PO PRN ×2 (18:37)
[2021-09-06] MEDS ORDERED: Ibuprofen 400 MG Tab PO PRN (18:37)
[2021-09-06] MEDS ORDERED: Bisacodyl 10 MG Supp RECTAL PRN (18:37)
[2021-09-06] MEDS ORDERED: Lanolin 100% Cream 7 GM Tube TOP PRN (18:37)
[2021-09-06] MEDS ORDERED: Witch Hazel Medicated Pads 40/Jar TOP PRN (18:37)
[2021-09-06] MEDS ORDERED: Docusate Sodium 100 MG Cap PO PRN (18:37)
[2021-09-06] MEDS ORDERED: Benzocaine/Menthol 20%-0.5% Spray 78 GM Cannister TOP PRN (18:37)
[2021-09-07] MEDS: Ibuprofen 800 MG Tab PO PRN ×2 (00:13→08:24)
[2021-09-07 19:38] VITALS: BP 98/64; PULSE 75
== END 2021-09-07 21:33 | disposition home or self-care (01) | DRG 560 ==
LOC: MW.OBCHECK 16:26 → MW.OB 16:28 → MW.OBCHECK 17:13 → MW.OB 17:13 → OBSVTOIN 18:15 → MW.OB 21:12
PROVIDERS: ADMIT Obstetrics & Gynecology; ATTEND Obstetrics & Gynecology
PROC: 10E0XZZ Delivery of Products of Conception, External Approach (ICD-10-PCS; principal; 2021-09-06)
PROC: 3E0R3BZ Introduction of Anesthetic Agent into Spinal Canal, Percutaneous Approach (ICD-10-PCS; 2021-09-06)
PROC: 00HU33Z Insertion of Infusion Device into Spinal Canal, Percutaneous Approach (ICD-10-PCS; 2021-09-06)
DX: O48.0 Post-term pregnancy (principal); Z37.0 Single live birth; O99.824 Streptococcus B carrier state complicating childbirth; O62.3 Precipitate labor; O77.0 Labor and delivery complicated by meconium in amniotic fluid; Z20.822 Contact with and (suspected) exposure to COVID-19; Z3A.40 40 weeks gestation of pregnancy
CPT/HCPCS: 36415; 59025; 59409; 82803; 85014; 85018; 85027; 86592; 86850; 86900; 86901; A9270-GY; J0290; J2590; J2795; J7120; U0002

== ENCOUNTER 2023-05-23 03:45 | Emergency (ER) | payer BC ==
[2023-05-23 04:26] LABS: BASOPHILS ABSOLUTE AUTO 0.06 K/uL (0.00-0.20); BASOPHILS PERCENT AUTO 0.7 % (0.0-1.0); EOSINOPHILS ABSOLUTE AUTO 0.07 K/uL (0.00-0.45); EOSINOPHILS PERCENT AUTO 0.8 % (0.0-6.0); HEMATOCRIT 36.1 % (37.0-47.0); HEMOGLOBIN 11.8 g/dL (12.0-16.0); IMMATURE GRAN ABSOLUTE AUTO 0.03 K/uL (0.00-0.05); IMMATURE GRAN PERCENT AUTO 0.3 % (0.0-0.4); LYMPHOCYTES ABSOLUTE AUTO 1.59 K/uL (1.00-4.80); LYMPHOCYTES PERCENT AUTO 18.5 % (24.0-44.0); MEAN CORPUSCULAR HGB CONC 32.7 g/dL (32.0-36.0); MEAN CORPUSCULAR VOLUME 85.5 fL (83.0-99.0); MEAN PLATELET VOLUME 10.4 fL (9.4-12.3); MONOCYTES ABSOLUTE AUTO 0.39 K/uL (0.00-0.80); MONOCYTES PERCENT AUTO 4.5 % (0.0-8.0); NEUTROPHILS ABSOLUTE AUTO 6.45 K/uL (1.80-7.70); NEUTROPHILS PERCENT AUTO 75.2 % (41.0-71.0); PLATELET COUNT,PLT 278 K/uL (150-400); RED BLOOD CELL COUNT 4.22 M/uL (4.10-5.30); WHITE BLOOD CELL COUNT,WBC 8.59 K/uL (3.9-11.3)
[2023-05-23 04:35] LABS: AMPHETAMINES SCREEN, URINE NEGATIVE (CUTOFF=500); BARBITURATE SCREEN,URINE NEGATIVE (CUTOFF=200); BENZODIAZEPINES SCREEN,URINE NEGATIVE (CUTOFF=150); BUPRENORPHINE SCREEN,URINE NEGATIVE (CUTOFF=10); METHADONE SCREEN, URINE NEGATIVE (CUTOFF=200); METHAMPHETAMINES SCREEN, URINE NEGATIVE (CUTOFF=500); OXYCODONE SCREEN,URINE NEGATIVE (CUT0FF=100); PCP SCREEN,URINE NEGATIVE (CUTOFF=25); THC SCREEN,URINE 20 NG/ML NEGATIVE (CUTOFF=50)
[2023-05-23 04:56] LABS: A/G RATIO 1.1 (0.9-1.6); ALANINE AMINOTRANSFERASE,ALT 26 IU/L (14-63); ALBUMIN 3.8 g/dL (3.4-5.0); ALKALINE PHOSPHATASE 63 U/L (46-116); ASPARTATE AMNIOTRANSFERASE,AST 15 IU/L (15-37); BILIRUBIN TOTAL 0.2 mg/dL (0.2-1.0); BLOOD UREA NITROGEN,BUN 8 mg/dL (7.0-18.0); CALCIUM 8.7 mg/dL (8.5-10.1); CARBON DIOXIDE,CO2 30.4 mmol/L (21.0-32.0); CHLORIDE,CL 105 mmol/L (98-107); CREATININE 0.7 mg/dL (0.6-1.0); EST CRCL DRUG DOSING (CG) 102.01 mL/min; ESTIMATED GFR 113 mL/min (>60); GLUCOSE RANDOM 123 mg/dL (74-106); POTASSIUM,K 3.4 mmol/L (3.5-5.1); PROTEIN TOTAL,TP 7.4 g/dL (6.4-8.2); SODIUM,NA 141 mmol/L (136-145); TSH ULTRASENSITIVE 3.42 uIU/mL (0.36-3.74)
[2023-05-23 05:58] VITALS: BP 120/71; PULSE 79
== END 2023-05-23 05:58 | disposition home or self-care (01) ==
LOC: MW.ED 03:45
DX: R00.2 Palpitations (principal)
CPT/HCPCS: 36415; 71045; 71045-26; 80053; 80305-QW; 81025; 83735; 84443; 84484; 85025; 93005; 93010; 99282; 99285

== ENCOUNTER 2024-06-08 00:13 | Inpatient (IN) | payer BC ==
[2024-06-08] MEDS ORDERED: Carboprost Tromethamine 250 MCG/1 mL Vial IM PRN (00:29)
[2024-06-08] MEDS ORDERED: Lidocaine 1% 50 ML MDV INJECT PRN (00:29)
[2024-06-08] MEDS ORDERED: Sodium Chloride 0.9% 20 ML SDV IV PRN (00:29)
[2024-06-08] MEDS ORDERED: Sodium Chloride 0.9% 2.5 ML Syringe FLUSH PRN (00:29)
[2024-06-08] MEDS ORDERED: Water For Irrigation,Sterile 1,000 ML Container IRR PRN (00:29)
[2024-06-08] MEDS ORDERED: Methylergonovine 0.2 MG/1 ML Amp IM PRN (00:29)
[2024-06-08] MEDS ORDERED: Ondansetron 4 MG/2 ML SDV IVPUSH PRN (00:29)
[2024-06-08] MEDS ORDERED: Misoprostol 200 MCG Tab PO PRN (00:29)
[2024-06-08] MEDS ORDERED: Butorphanol 2 MG/ML SDV IVPUSH PRN (00:29)
[2024-06-08] MEDS ORDERED: Tranexamic Acid in NACL,ISO-OS 1,000 MG in Premix Bag 1 BAG IV PRN (00:29)
[2024-06-08] MEDS ORDERED: Sodium Chloride 0.9% 10 ML Syringe FLUSH PRN (00:29)
[2024-06-08] MEDS: Oxytocin/0.9 % Sodium Chloride 30 UNIT/500 ML BAG IV SCH (01:00)
[2024-06-08 01:15] LABS: HEMOGLOBIN 12.1 g/dL (12.0-16.0); MEAN CORPUSCULAR HEMOGLOBIN 28.5 pg (28.0-32.0); MEAN CORPUSCULAR HGB CONC 33.6 g/dL (32.0-36.0); MEAN CORPUSCULAR VOLUME 84.7 fL (83.0-99.0); MEAN PLATELET VOLUME 11.6 fL (9.4-12.3); PLATELET COUNT,PLT 227 K/uL (150-400); RED BLOOD CELL COUNT 4.25 M/uL (4.10-5.30); WHITE BLOOD CELL COUNT,WBC 12.64 K/uL (3.9-11.3)
[2024-06-08] MEDS: Ampicillin 2 GM in Sodium Chloride 0.9% 100 ML IV ONE (01:17)
[2024-06-08] MEDS: Lactated Ringers 1,000 ML IV SCH (01:17)
[2024-06-08] MEDS ORDERED: Lanolin 100% Cream 7 GM Tube TOP PRN (02:59)
[2024-06-08] MEDS ORDERED: oxyCODONE 5 MG Tab PO PRN (02:59)
[2024-06-08] MEDS ORDERED: Witch Hazel Medicated Pads 40/Jar TOP PRN (02:59)
[2024-06-08] MEDS ORDERED: Benzocaine/Menthol 20%-0.5% Spray 78 GM Cannister TOP PRN (02:59)
[2024-06-08] MEDS ORDERED: Ampicillin 1 GM in Sodium Chloride 0.9% 50 ML IV SCH (05:00)
[2024-06-08] MEDS: Ibuprofen 800 MG Tab PO PRN (05:11)
[2024-06-08 16:14] LABS: HEMATOCRIT 31.9 % (37.0-47.0); HEMOGLOBIN 10.7 g/dL (12.0-16.0)
[2024-06-08] MEDS: Acetaminophen 500 MG Tab PO PRN (19:09)
[2024-06-08] MEDS: Docusate Sodium 100 MG Cap PO PRN (19:09)
[2024-06-09 12:17] VITALS: BP 115/66; PULSE 68
== END 2024-06-09 12:30 | disposition home or self-care (01) | DRG 560 ==
LOC: MW.OBCHECK 00:13 → MW.OB 00:14 → MW.OBCHECK 00:29 → OBSVTOIN 02:32 → MW.OB 05:43
PROVIDERS: ADMIT Obstetrics & Gynecology; ATTEND Obstetrics & Gynecology
PROC: 10E0XZZ Delivery of Products of Conception, External Approach (ICD-10-PCS; principal; 2024-06-08)
DX: O99.824 Streptococcus B carrier state complicating childbirth (principal); Z37.0 Single live birth; Z3A.40 40 weeks gestation of pregnancy; O77.0 Labor and delivery complicated by meconium in amniotic fluid
CPT/HCPCS: 36415; 59025; 59409; 85014; 85018; 85027; 86592; 86850; 86900; 86901; A9270-GY; J0290; J2590; J3490; J7120